=== PATIENT | female | born 1995 | race American Indian/Alaskan Native ===

== ENCOUNTER 2017-12-22 04:00 | Outpatient (CLI) | payer MEDICAID ==
[2017-12-22] MEDS ORDERED: LACTATED RINGERS 1,000 ML IV ONE (04:26)
[2017-12-22 04:34] VITALS: BP 124/76
[2017-12-22 05:26] LABS: Bacteria,Urine 1+ /HPF (Negative); Bilirubin,Urine NEG (Negative); Blood,Urine NEG (Negative); Color,Urine Yellow (Yellow); Hyaline Casts,Urine 1 /LPF; Mucus,Urine FEW /HPF; Protein,Urine <15 mg/dL mg/dL (Negative); Urobilinogen,Urine < 2.0 mg/dL (<2.0)
[2017-12-22] MEDS ORDERED: LOMOTIL PO ONE (05:28)
== END 2017-12-22 05:47 | disposition home or self-care (01) ==
LOC: TRG 04:00
PROVIDERS: ATTEND Obstetrics & Gynecology
DX: O47.03 False labor before 37 completed weeks of gestation, third trimester (principal); Z3A.31 31 weeks gestation of pregnancy
CPT/HCPCS: 81001

== ENCOUNTER 2017-12-23 01:48 | Outpatient (CLI) | payer MEDICAID ==
[2017-12-23] MEDS ORDERED: LACTATED RINGERS 1,000 ML ONE (02:32)
[2017-12-23 02:39] VITALS: BP 116/71
[2017-12-23] MEDS ORDERED: LACTATED RINGERS 1,000 ML IV ONE (03:31)
[2017-12-23] MEDS ORDERED: FLAGYL PO ONE (03:32)
== END 2017-12-23 03:55 | disposition home or self-care (01) ==
LOC: TRG 01:48
PROVIDERS: ATTEND Obstetrics & Gynecology
DX: O47.03 False labor before 37 completed weeks of gestation, third trimester (principal); Z3A.31 31 weeks gestation of pregnancy
CPT/HCPCS: 96360; J7120